=== PATIENT | female | born 1995 | race American Indian/Alaskan Native ===

== ENCOUNTER 2019-02-12 12:22 | Emergency (ER) | payer SELFPAY ==
[2019-02-12 13:03] VITALS: BP 157/79
--- NOTE | 2019-02-12 13:05 | Event Note ---
ED Screening Note Date of service: 02/12/19 Time: 13:01 ED Screening Note: This is a 23 y.o. F. that presents to the ER with pelvic pain for 2 days. Reports history of ovarian cyst on right. LMP on Depo - urinary frequency, urgency, dysuria, vaginal discharge/bleeding, back pain, or hematuria. This initial assessment/diagnostic orders/clinical plan/treatment(s) is/are subject to change based on patients health status, clinical progression and re- assessment by fellow clinical providers in the ED. Further treatment and workup at subsequent clinical providers discretion. Patient/guardian urged not to elope from the ED as their condition may be serious if not clinically assessed and ma naged. Initial orders include: Labs and Pelvic/transvaginal US
[2019-02-12 13:31] LABS: Bacteria,Urine 1+ /HPF (Negative); Bilirubin,Urine NEG (Negative); Blood,Urine SM (Negative); Color,Urine Yellow (Yellow); Mucus,Urine 3+ /HPF; Protein,Urine <15 mg/dL mg/dL (Negative); Urobilinogen,Urine < 2.0 mg/dL (<2.0)
[2019-02-12 13:36] LABS: Basophils % (Auto) 0.5 % (0.0-1.8); Eosinophils # (Auto) 0.1 K/mm3 (0.0-0.4); Eosinophils % (Auto) 2.9 % (0.0-4.3); Hematocrit 39.6 % (30.3-42.9); Lymphocytes # (Auto) 1.8 K/mm3 (1.2-5.4); Lymphocytes % (Auto) 36.1 % (13.4-35.0); Mean Corpuscular HGB Conc 33 % (30-34); Mean Corpuscular Volume 88 fl (79-97); Monocytes # (Auto) 0.4 K/mm3 (0.0-0.8); Monocytes % (Auto) 7.9 % (0.0-7.3); Platelet Count 223 K/mm3 (140-440); Red Blood Count 4.53 M/mm3 (3.65-5.03); Red Cell Distribution Width 13.8 % (13.2-15.2)
--- NOTE | 2019-02-12 13:50 | Emergency Department Report ---
ED Abdominal Pain HPI - General Chief Complaint: Abdominal Pain Stated Complaint: LOWER ABD PAIN Time Seen by Provider: 02/12/19 13:01 Source: patient Mode of arrival: Ambulatory Limitations: Language Barrier - History of Present Illness Initial Comments: 23-year-old female presents to ED with lower abdominal pain since yesterday. Patient reports she has been having ongoing lower abdominal pain for the last 8 months. States has been to various physicians over the course of the last 8 months. Reports previous ultrasounds showed ovarian cyst. LMP unknown. Patient states she was on Depo injections, but last shot was in August, missed the November dose. Patient reports she has been sexually active, not using condoms. Patient has not taken a test. Reported urinary frequency, denies dysuria. She reports vaginal discharge. MD Complaint: abdominal pain -: Last night Location: suprapubic Radiation: none Migration to: no migration Severity: mild Severity scale (0 -10): 6 Quality: cramping Consistency: constant Improves With: nothing Worsens With: nothing Associated Symptoms: denies: nausea, vomiting, fever, dysuria - Related Data Previous Rx's Medication Instructions Recorded Last Taken Type Naproxen [Naprosyn] 500 mg PO BID #20 tablet 02/12/19 Unknown Rx Phenazopyridine [Pyridium] 200 mg PO TID #6 tab 02/12/19 Unknown Rx Sulfamethoxazole/Trimethoprim 1 each PO BID #6 tablet 02/12/19 Unknown Rx [Bactrim DS TAB] Allergies Allergy/AdvReac Type Severity Reaction Status Date / Time No Known Allergies Allergy Verified 02/12/19 13:03 ED Review of Systems ROS: Stated complaint: LOWER ABD PAIN Other details as noted in HPI Comment: All other systems reviewed and negative Constitutional: denies: chills, fever Gastrointestinal: abdominal pain. denies: nausea, vomiting Genitourinary: frequency, discharge, abnormal menses. denies: dysuria ED Past Medical Hx - Past Medical History Additional medical history: OVARIAN CYST - Surgical History Additional Surgical History: BREAST AUMENTATION. - Social History Smoking Status: Never Smoker Substance Use Type: None - Medications Home Medications: Home Medications Medication Instructions Recorded Confirmed Last Taken Type Naproxen [Naprosyn] 500 mg PO BID #20 tablet 02/12/19 Unknown Rx Phenazopyridine [Pyridium] 200 mg PO TID #6 tab 02/12/19 Unknown Rx Sulfamethoxazole/Trimethoprim 1 each PO BID #6 tablet 02/12/19 Unknown Rx [Bactrim DS TAB] ED Physical Exam - General Limitations: Language Barrier General appearance: alert, in no apparent distress - Head Head exam: Present: atraumatic, normocephalic - Eye Eye exam: Present: normal appearance, PERRL, EOMI - ENT ENT exam: Present: mucous membranes moist - Neck Neck exam: Present: normal inspection - Respiratory Respiratory exam: Present: normal lung sounds bilaterally. Absent: respiratory distress - Cardiovascular Cardiovascular Exam: Present: regular rate, normal rhythm - GI/Abdominal GI/Abdominal exam: Present: soft, tenderness (mild suprapubic tenderness). Absent: distended - External exam: Present: normal external exam Speculum exam: Present: vaginal discharge (white, thick) Bi-manual exam: Present: normal bi-manual exam. Absent: cervical motion tendernes, adnexal tenderness - Extremities Exam Extremities exam: Present: normal inspection - Neurological Exam Neurological exam: Present: alert, oriented X3 - Psychiatric Psychiatric exam: Present: normal affect, normal mood - Skin Skin exam: Present: warm, dry, intact, normal color ED Course Vital Signs 02/12/19 13:01 Temperature 99 F Pulse Rate 92 H Respiratory 18 Rate Blood Pressure 157/79 [Right] O2 Sat by Pulse 98 Oximetry ED Medical Decision Making - Lab Data Result diagrams: 02/12/19 13:10 02/12/19 13:10 - Differential Diagnosis , UTI, PID Critical care attestation.: If time is entered above; I have spent that time in minutes in the direct care of this critically ill patient, excluding procedure time. ED Disposition Clinical Impression: UTI (urinary tract infection) Disposition: DC-01 TO HOME OR SELFCARE Is pt being admited?: No Condition: Stable Instructions: Urinary Tract Infection in Women (ED) Prescriptions: Sulfamethoxazole/Trimethoprim [Bactrim DS TAB] 1 each PO BID #6 tablet Naproxen [Naprosyn] 500 mg PO BID #20 tablet Phenazopyridine [Pyridium] 200 mg PO TID #6 tab Referrals: AMERICA TEMPLETON MD [Primary Care Provider] - 3-5 Days TARSHA PUGA MD [Staff Physician] - 3-5 Days Time of Disposition: 14:29
[2019-02-12 13:56] LABS: Alanine Aminotransferase 12 units/L (7-56); Albumin 4.2 g/dL (3.9-5); BUN/Creatinine Ratio 13; Blood Urea Nitrogen 8 mg/dL (7-17); Calcium 8.9 mg/dL (8.4-10.2); Hemolysis Index 6
[2019-02-12] MEDS ORDERED: AZITHROMYCIN 250 MG TAB PO ONE (14:24)
[2019-02-12] MEDS ORDERED: LIDOCAINE-MPF (1%) 10 MG/1 ML VIAL 5 ML INFILTRATI ONE (14:24)
== END 2019-02-12 14:56 | disposition home or self-care (01) ==
LOC: ED 12:22
DX: N39.0 Urinary tract infection, site not specified (principal); Z98.890 Other specified postprocedural states
CPT/HCPCS: 36415; 80053; 81001; 84703; 85025; 87210; 87591; 96372; 99284; J0696

== ENCOUNTER 2019-11-06 20:47 | Emergency (ER) | payer SELFPAY ==
[2019-11-06 20:51] VITALS: BP 114/80
--- NOTE | 2019-11-06 20:52 | Event Note ---
ED Screening Note ED Screening Note: lower abd pain that began a week ago states she is having vaginal discharge no fever no v/d no dysuria PMHx none no allergies to meds LNMP: a week and a half ago she states she does not have a PCP or CARE MANAGER CNA This initial assessment/diagnostic orders/clinical plan/treatment(s) is/are subject to change based on patients health status, clinical progression and re- assessment by fellow clinical providers in the ED. Further treatment and workup at subsequent clinical providers discretion. Patient/guardian urged not to elope from the ED as their condition may be serious if not clinically assessed and managed. Initial orders include: ua, urine preg
[2019-11-06 21:15] LABS: Bacteria,Urine 1+ /HPF (Negative); Bilirubin,Urine NEG (Negative); Blood,Urine NEG (Negative); Color,Urine Yellow (Yellow); Mucus,Urine 1+ /HPF; Protein,Urine <15 mg/dL mg/dL (Negative); Urobilinogen,Urine < 2.0 mg/dL (<2.0)
[2019-11-06 21:18] LABS: HCG Qualitative,Urine Negative (Negative)
--- NOTE | 2019-11-06 21:59 | Emergency Department Report ---
ED Female HPI - General Chief complaint: Abdominal Pain Stated complaint: ABDOMINAL PAIN/ABNORMAL DISCHARGE Time Seen by Provider: 11/06/19 20:51 Source: patient Mode of arrival: Ambulatory Limitations: No Limitations - History of Present Illness Initial comments: 23-year-old F [place] female resents emerged department complaining of lower abdominal pain off and on for 2 weeks associated with occasional cramping and some dysuria. She reports no suspicion of an STD. Ports no vaginal bleeding, no fever chills or sweats no chest pain or palpitations no nausea or vomiting. MD Complaint: dysuria Location: suprapubic Radiation: non-radiating Severity: mild Consistency: constant Improves with: none Associated Symptoms: dysuria. denies: vaginal bleeding, abdominal pain, loss of appetite, shortness of breath, syncope, weakness - Related Data Previous Rx's Medication Instructions Recorded Last Taken Type Naproxen [Naprosyn] 500 mg PO BID #20 tablet 02/12/19 Unknown Rx Sulfamethoxazole/Trimethoprim 1 each PO BID #6 tablet 02/12/19 Unknown Rx [Bactrim DS TAB] Nitrofurantoin [place]/M-Cryst 100 mg PO Q12HR #20 capsule 11/06/19 Unknown Rx [Macrobid CAP] Phenazopyridine [Pyridium] 200 mg PO TID #6 tab 11/06/19 Unknown Rx Allergies Allergy/AdvReac Type Severity Reaction Status Date / Time No Known Allergies Allergy Verified 02/12/19 13:03 ED Review of Systems ROS: Stated complaint: ABDOMINAL PAIN/ABNORMAL DISCHARGE Other details as noted in HPI Comment: All other systems reviewed and negative ED Past Medical Hx - Past Medical History Previous Medical History?: Yes Additional medical history: OVARIAN CYST - Surgical History Past Surgical History?: Yes Additional Surgical History: BREAST AUMENTATION. - Social History Smoking Status: Never Smoker Substance Use Type: None - Medications Home Medications: Home Medications Medication Instructions Recorded Confirmed Last Taken Type Naproxen [Naprosyn] 500 mg PO BID #20 tablet 02/12/19 Unknown Rx Sulfamethoxazole/Trimethoprim 1 each PO BID #6 tablet 02/12/19 Unknown Rx [Bactrim DS TAB] Nitrofurantoin [place]/M-Cryst 100 mg PO Q12HR #20 capsule 11/06/19 Unknown Rx [Macrobid CAP] Phenazopyridine [Pyridium] 200 mg PO TID #6 tab 11/06/19 Unknown Rx ED Physical Exam - General Limitations: No Limitations General appearance: alert, in no apparent distress - Head Head exam: Present: atraumatic, normocephalic - Eye Eye exam: Present: normal appearance, PERRL, EOMI - ENT ENT exam: Present: mucous membranes moist - Neck Neck exam: Present: normal inspection - Respiratory Respiratory exam: Present: normal lung sounds bilaterally. Absent: respiratory distress - Cardiovascular Cardiovascular Exam: Present: regular rate, normal rhythm. Absent: systolic murmur, diastolic murmur, rubs, gallop - GI/Abdominal GI/Abdominal exam: Present: soft, normal bowel sounds - Extremities Exam Extremities exam: Present: normal inspection - Back Exam Back exam: Present: normal inspection - Neurological Exam Neurological exam: Present: alert, oriented X3 - Psychiatric Psychiatric exam: Present: normal affect, normal mood - Skin Skin exam: Present: warm, dry, intact, normal color. Absent: rash ED Course Vital Signs 11/06/19 11/06/19 20:50 20:52 Temperature 98.6 F 98.6 F Pulse Rate 77 76 Respiratory 18 18 Rate Blood Pressure 114/80 114/80 O2 Sat by Pulse 98 98 Oximetry ED Medical Decision Making - Medical Decision Making This patient presents with abdominal pain of unclear etiology. Their evaluation has not identified a emergent etiology for the abdominal pain. Specifically, given the very benign exam, normal laboratory studies, and lack of significant risk factors, I have a very low suspicion for appendicitis, ischemic bowel, bowel perforation, or any other life threatening disease. I have discussed with the patient the level of uncertainty with undifferentiated abdominal pain and clearly explained the need to follow-up as noted on the discharge instructions, or return to the Emergency Department immediately if the pain worsens, develops fever, persistent and uncontrollable vomiting, or for any new symptoms or concerns. I discussed with the patient that this presentation today for abdominal pain could represent a significant risk for an acute abdominal process. Although the tests in the ED were essentially normal, there is still a possibility of a process such as appendicitis, diverticulitis, cholecystitis, ulcer, early bowel obstruction, mesenteric ischemia, kidney stone, or even kidney infection which could subsequently cause disability or . The patient understands that they must return within 24 hours for a recheck or see their physician within 24 hours for re-exam due to the possibility of significant surgical or medical process. Critical care attestation.: If time is entered above; I have spent that time in minutes in the direct care of this critically ill patient, excluding procedure time. ED Disposition Clinical Impression: UTI (urinary tract infection) Disposition: TO HOME OR SELFCARE Is pt being admited?: No Does the pt Need Aspirin: No Condition: Stable Instructions: Abdominal Pain (ED), Dysuria (ED), Urinary Tract Infection in Women (ED) Prescriptions: Nitrofurantoin [place]/M-Cryst [Macrobid CAP] 100 mg PO Q12HR #20 capsule Phenazopyridine [Pyridium] 200 mg PO TID #6 tab Referrals: PRIMARY CARE, [Primary Care Provider] - 3-5 Days [facility] [Provider Group] - 3-5 Days
== END 2019-11-06 22:53 | disposition home or self-care (01) ==
LOC: ED 20:47
DX: N39.0 Urinary tract infection, site not specified (principal); N83.209 Unspecified ovarian cyst, unspecified side; Z98.890 Other specified postprocedural states; Z79.899 Other long term (current) drug therapy
CPT/HCPCS: 81001; 81025

== ENCOUNTER 2020-04-30 19:06 | Emergency (ER) | payer SELFPAY ==
[2020-04-30 21:42] VITALS: BP 118/66
[2020-04-30 21:58] LABS: Hemoglobin 12.6 gm/dl (10.1-14.3); Mean Corpuscular HGB Conc 33 % (30-34); Mean Corpuscular Volume 88 fl (79-97); Platelet Count 228 K/mm3 (140-440); Red Blood Count 4.29 M/mm3 (3.65-5.03); Red Cell Distribution Width 13.9 % (13.2-15.2)
[2020-04-30 22:20] LABS: Blood Urea Nitrogen 8 mg/dL (7-17); Calcium 9.8 mg/dL (8.4-10.2); Hemolysis Index 15
[2020-04-30 22:24] LABS: Bilirubin,Urine NEG (Negative); Blood,Urine NEG (Negative); Color,Urine Yellow (Yellow); Mucus,Urine 2+ /HPF; Protein,Urine <15 mg/dL mg/dL (Negative); WBC,Urine < 1.0 /HPF (0.0-6.0)
[2020-04-30 22:30] LABS: BUN/Creatinine Ratio 13
[2020-04-30 23:03] LABS: Alanine Aminotransferase 9 units/L (7-56); Albumin 4.3 g/dL (3.9-5)
[2020-04-30 23:04] LABS: Bilirubin,Direct < 0.2 mg/dL (0-0.2)
[2020-04-30] MEDS ORDERED: LIDOCAINE-MPF (1%) 10 MG/1 ML VIAL 5 ML INFILTRATI ONE (23:58)
[2020-04-30] MEDS ORDERED: AZITHROMYCIN 250 MG TAB PO ONE (23:58)
[2020-04-30] MEDS ORDERED: ACETAMINOPHEN 500 MG TAB PO ONE (23:58)
[2020-04-30] MEDS ORDERED: ONDANSETRON 4 MG ODT TAB PO ONE (23:59)
--- NOTE | 2020-05-01 00:09 | Ultrasound Report ---
EXAMINATION: Complete pelvic ultrasound, 04/30/2020 CLINICAL INFORMATION: Pelvic pain and dysfunctional uterine bleeding COMPARISON: None. FINDINGS: The uterus is normal in size measuring 8.0 x 3.7 x 5.3 cm. The endometrial thickness measures a maxim um of 11 mm. The bilateral adnexal regions appear within normal limits. Doppler flow is demonstrated to both adnex al regions. There is a small amount of free pelvic fluid. IMPRESSION: 1. No sonographic evidence of acute intrapelvic abnormality. Signer Name: Tarah Mccracken MD Signed: 05/01/2020 12:04 AM Workstation Name: [id number]
--- NOTE | 2020-05-01 00:47 | Emergency Department Report ---
ED Abdominal Pain HPI - General Chief Complaint: Abdominal Pain Stated Complaint: ABDOMINAL PAIN Source: patient Mode of arrival: Ambulatory Limitations: No Limitations - History of Present Illness Initial Comments: Patient is a A2 24-year-old -[place] female with history of chronic pelvic pain who presents to the ED with complaint of acute exacerbation of her chronic pelvic pain for the last 3 weeks. Patient states that she is 3 weeks s/p through D&C and that the pain has not stopped since the procedure 3 weeks ago. Patient states that she has also been having persistent vaginal discharge which she describes as yellowish with malodorous smell. Patient denies dizziness, syncope, dysuria, urinary frequency and urgency, nausea, vomiting, diarrhea, low back pain, chest pain or shortness of breath and sore throat or headache. MD Complaint: abdominal pain (Diffuse lower abdomen), other (Vaginal discharge) -: Sudden, week(s) (3) Location: suprapubic Radiation: none Migration to: no migration Severity scale (0 -10): 7 Quality: cramping, aching, sharp Consistency: constant Improves With: nothing Worsens With: nothing Associated Symptoms: denies other symptoms. denies: nausea, vomiting, diarrhea, fever, chills, constipation, dysuria, hematemesis, melena, hematuria, anorexia, syncope - Related Data Previous Rx's Medication Instructions Recorded Last Taken Type Naproxen [Naprosyn] 500 mg PO BID #20 tablet 02/12/19 Unknown Rx Sulfamethoxazole/Trimethoprim 1 each PO BID #6 tablet 02/12/19 Unknown Rx [Bactrim DS TAB] Nitrofurantoin [place]/M-Cryst 100 mg PO Q12HR #20 capsule 11/06/19 Unknown Rx [Macrobid CAP] Phenazopyridine [Pyridium] 200 mg PO TID #6 tab 11/06/19 Unknown Rx Doxycycline Hyclate 100 mg PO Q12H #20 tablet. 05/01/20 Unknown Rx Fluconazole (Nf) [Diflucan TAB] 150 mg PO ONCE #1 tablet 05/01/20 Unknown Rx Naproxen 500 mg PO Q12H PRN #30 tablet 05/01/20 Unknown Rx Ondansetron [Zofran Odt] 4 mg PO Q6HR PRN #15 tab.ghulam 05/01/20 Unknown Rx metroNIDAZOLE [Flagyl] 500 mg PO Q12HR #14 tab 05/01/20 Unknown Rx traMADoL [Ultram] 50 mg PO Q6HR PRN #10 tablet 05/01/20 Unknown Rx Allergies Allergy/AdvReac Type Severity Reaction Status Date / Time No Known Allergies Allergy Verified 02/12/19 13:03 ED Review of Systems ROS: Stated complaint: ABDOMINAL PAIN Other details as noted in HPI Constitutional: denies: chills, fever Eyes: denies: eye pain, eye discharge, vision change ENT: denies: ear pain, throat pain Respiratory: denies: cough, shortness of breath, wheezing Cardiovascular: denies: chest pain, palpitations Endocrine: no symptoms reported Gastrointestinal: abdominal pain (suprapubic). denies: nausea, vomiting, diarrhea Genitourinary: discharge. denies: urgency, dysuria Musculoskeletal: denies: back pain, joint swelling, arthralgia Skin: denies: rash, lesions Neurological: denies: headache, weakness, paresthesias Psychiatric: denies: anxiety, depression Hematological/Lymphatic: denies: easy bleeding, easy bruising ED Past Medical Hx - Past Medical History Previous Medical History?: No Additional medical history: OVARIAN CYST - Surgical History Additional Surgical History: BREAST AUMENTATION. - Social History Smoking Status: Never Smoker Substance Use Type: None - Medications Home Medications: Home Medications Medication Instructions Recorded Confirmed Last Taken Type Naproxen [Naprosyn] 500 mg PO BID #20 tablet 02/12/19 Unknown Rx Sulfamethoxazole/Trimethoprim 1 each PO BID #6 tablet 02/12/19 Unknown Rx [Bactrim DS TAB] Nitrofurantoin [place]/M-Cryst 100 mg PO Q12HR #20 capsule 11/06/19 Unknown Rx [Macrobid CAP] Phenazopyridine [Pyridium] 200 mg PO TID #6 tab 11/06/19 Unknown Rx Doxycycline Hyclate 100 mg PO Q12H #20 tablet. 05/01/20 Unknown Rx Fluconazole (Nf) [Diflucan TAB] 150 mg PO ONCE #1 tablet 05/01/20 Unknown Rx Naproxen 500 mg PO Q12H PRN #30 tablet 05/01/20 Unknown Rx Ondansetron [Zofran Odt] 4 mg PO Q6HR PRN #15 tab.rapdis 05/01/20 Unknown Rx metroNIDAZOLE [Flagyl] 500 mg PO Q12HR #14 tab 05/01/20 Unknown Rx traMADoL [Ultram] 50 mg PO Q6HR PRN #10 tablet 05/01/20 Unknown Rx ED Physical Exam - General Limitations: No Limitations General appearance: alert, in no apparent distress - Head Head exam: Present: atraumatic, normocephalic, normal inspection - Eye Eye exam: Present: normal appearance, PERRL, EOMI Pupils: Present: normal accommodation - ENT ENT exam: Present: normal exam, normal orophraynx, mucous membranes moist, TM's normal bilaterally, normal external ear exam - Neck Neck exam: Present: normal inspection, full ROM - Respiratory Respiratory exam: Present: normal lung sounds bilaterally. Absent: respiratory distress, wheezes, rales, rhonchi, chest wall tenderness, accessory muscle use, decreased breath sounds, prolonged expiratory - Cardiovascular Cardiovascular Exam: Present: regular rate, normal rhythm, normal heart sounds. Absent: systolic murmur, diastolic murmur, rubs, gallop - GI/Abdominal GI/Abdominal exam: Present: soft, tenderness (Diffuse lower abdominal tenderness to palpitations), normal bowel sounds. 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 Absent: tenderness, CVA tenderness (R), CVA tenderness (L), muscle spasm, paraspinal tenderness, vertebral tenderness - Neurological Exam Neurological exam: Present: alert, oriented X3, CN II-XII intact, normal gait, reflexes normal - Psychiatric Psychiatric exam: Present: normal affect, normal mood - Skin Skin exam: Present: warm, dry, intact, normal color. Absent: rash ED Course Vital Signs 04/30/20 21:40 Temperature 98.1 F Pulse Rate 69 Respiratory 16 Rate Blood Pressure 118/66 O2 Sat by Pulse 99 Oximetry ED Medical Decision Making - Lab Data Result diagrams: 04/30/20 21:46 04/30/20 21:46 - Radiology Data Radiology results: report reviewed, image reviewed Findings [facility] [address] [place] [address] Ultrasound Report Signed Patient: LINDA MASTERSON MR#: [id number] : 1995 Acct:[id number] Age/Sex: 24 / F ADM Date: 04/30/20 Loc: ED Attending Dr: Ordering Physician: DELBERT BAKER Date of Service: 04/30/20 Procedure(s): US pelvis duplex doppler comp Accession Number(s): [id number] cc: DELBERT BAKER EXAMINATION: Complete pelvic ultrasound, 04/30/2020 CLINICAL INFORMATION: Pelvic pain and dysfunctional uterine bleeding COMPARISON: None. FINDINGS: The uterus is normal in size measuring 8.0 x 3.7 x 5.3 cm. The endometrial thickness measures a maximum of 11 mm. The bilateral adnexal regions appear within normal limits. Doppler flow is demonstrated to both adnexal regions. There is a small amount of free pelvic fluid. IMPRESSION: 1. No sonographic evidence of acute intrapelvic abnormality. Signer Name: Tarah Mccracken MD Signed: 05/01/2020 12:04 AM Workstation Name: [id number] Transcribed By: EB Dictated By: Tarah Mccracken MD Electronically Authenticated By: Tarah Mccracken MD Signed Date/Time: 05/01/20 0004 DD/ 0002 TD/TT: - Medical Decision Making This is a A2 24-year-old -[place]ian female with history of chronic pelvic pain who presents to the ED with complaint of acute exacerbation of her chronic pelvic pain for the last 3 weeks. Patient states that she is 3 weeks s/p through D&C and that the pain has not stopped since the procedure 3 weeks ago. Patient states that she has also been having persistent vaginal discharge which she describes as yellowish with malodorous smell. In the ED, patient is alert and oriented x3 and is not in distress. Patient was treated for pain in the ED and lab test results were reviewed and are all nonactionable except for wet prep test which was positive Gardnerella vaginalis. Pelvic exam was positive for cervical motion tenderness and uterine tenderness with yellowish vaginal discharge. Patient was empirically treated in the ED with antibiotics for PID and on reevaluation, patient's pain is well controlled with medications. Pelvic ultrasound showed no acute abnormalities. Patient was therefore discharged home on medications including antibiotics and pain medications and was advised to follow-up with [facility]OM[facility] physician in 5 to 7 days for reevaluation or return to the ED immediately if symptoms get worse. - Differential Diagnosis ; PID; Ovarian cyst; STD; UTI; Bacterial vaginosis; Critical care attestation.: If time is entered above; I have spent that time in minutes in the direct care of this critically ill patient, excluding procedure time. ED Disposition Clinical Impression: Acute suprapubic pain, Nausea and vomiting in adult, Acute pelvic inflammatory disease (PID), Bacterial vaginosis Disposition: TO HOME OR SELFCARE Is pt being admited?: No Does the pt Need Aspirin: No Condition: Stable Instructions: Nausea and Vomiting, Adult, [id number], Abdominal Pain, Adult, [id number], Pelvic Inflammatory Disease, [id number], Abdominal Pain (ED), Bacterial Vaginosis (ED), Bacterial Vaginosis, [id number] Additional Instructions: All lab test results were reviewed and are all nonactionable. The pelvic ultrasound showed no acute abnormalities. Therefore take medications with food, drink plenty of fluids and follow-up with your primary care physician or [facility] physician in 7 to 10 days for reevaluation or return to the ED immediately if symptoms get worse. Prescriptions: Fluconazole (Nf) [Diflucan TAB] 150 mg PO ONCE #1 tablet Doxycycline Hyclate 100 mg PO Q12H #20 tablet. metroNIDAZOLE [Flagyl] 500 mg PO Q12HR #14 tab Naproxen 500 mg PO Q12H PRN #30 tablet PRN Reason: Pain , Severe (7-10) traMADoL [Ultram] 50 mg PO Q6HR PRN #10 tablet PRN Reason: Pain Ondansetron [Zofran Odt] 4 mg PO Q6HR PRN #15 tab.rapdis PRN Reason: Nausea Referrals: [facility] [Provider Group] - 3-5 Days Forms: STI Treatment and Prevention Time of Disposition: 00:49 Print Language: [place]
== END 2020-05-01 01:20 | disposition home or self-care (01) ==
LOC: ED 19:06
DX: N73.8 Other specified female pelvic inflammatory diseases (principal); Z76.0 Encounter for issue of repeat prescription; B96.89 Other specified bacterial agents as the cause of diseases classified elsewhere; Z79.899 Other long term (current) drug therapy; Z98.890 Other specified postprocedural states
CPT/HCPCS: 36415; 80048; 80076; 81001; 83690; 85027; 87210; 87591; 93975; 96372; 99284; J0696; Q0162

== ENCOUNTER 2021-03-04 13:20 | Emergency (ER) | payer SELFPAY ==
[2021-03-04] MEDS ORDERED: LIDOCAINE-MPF (1%) 10 MG/1 ML VIAL 5 ML INFILTRATI ONE (14:05)
--- NOTE | 2021-03-04 14:23 | Emergency Department Report ---
ED Female HPI - General Chief complaint: Urogenital-Female Stated complaint: ABD PAIN/ABNORMAL DISCHARGE Time Seen by Provider: 03/04/21 13:53 Source: patient Mode of arrival: Ambulatory Limitations: No Limitations - History of Present Illness Initial comments: Patient is a 25-year-old female presents emergency room with complaints of vaginal discharge that began a week ago. She states it is white in coloration. She states that she also has some mild suprapubic discomfort. She denies any fever, nausea, vomiting, diarrhea, dysuria, urinary symptoms, vaginal bleeding, vaginal itching, vaginal burning, vaginal lesions. She states that she is sexually active without protection and is concerned for STDs. No past medical history. No allergies to medications. Last menstrual cycle end of January. - Related Data Previous Rx's Medication Instructions Recorded Last Taken Type Naproxen [Naprosyn] 500 mg PO BID #20 tablet 02/12/19 Unknown Rx Sulfamethoxazole/Trimethoprim 1 each PO BID #6 tablet 02/12/19 Unknown Rx [Bactrim DS TAB] Nitrofurantoin [place]/M-Cryst 100 mg PO Q12HR #20 capsule 11/06/19 Unknown Rx [Macrobid CAP] Phenazopyridine [Pyridium] 200 mg PO TID #6 tab 11/06/19 Unknown Rx Doxycycline Hyclate 100 mg PO Q12H #20 tablet. 05/01/20 Unknown Rx Fluconazole (Nf) [Diflucan TAB] 150 mg PO ONCE #1 tablet 05/01/20 Unknown Rx Naproxen 500 mg PO Q12H PRN #30 tablet 05/01/20 Unknown Rx Ondansetron [Zofran Odt] 4 mg PO Q6HR PRN #15 tab.rapdis 05/01/20 Unknown Rx metroNIDAZOLE [Flagyl] 500 mg PO Q12HR #14 tab 05/01/20 Unknown Rx traMADoL [Ultram] 50 mg PO Q6HR PRN #10 tablet 05/01/20 Unknown Rx Doxycycline Hyclate [Doxycycline 100 mg PO BID 7 Days #14 tab 03/04/21 Unknown Rx Hyclate TAB] metroNIDAZOLE [Flagyl] 500 mg PO BID 7 Days #14 tab 03/04/21 Unknown Rx Allergies Allergy/AdvReac Type Severity Reaction Status Date / Time No Known Allergies Allergy Verified 02/12/19 13:03 ED Review of Systems ROS: Stated complaint: ABD PAIN/ABNORMAL DISCHARGE Other details as noted in HPI Comment: All other systems reviewed and negative ED Past Medical Hx - Past Medical History Previous Medical History?: Yes Additional medical history: OVARIAN CYST - Surgical History Past Surgical History?: Yes Additional Surgical History: BREAST AUMENTATION. - Social History Smoking Status: Never Smoker Substance Use Type: None - Medications Home Medications: Home Medications Medication Instructions Recorded Confirmed Last Taken Type Naproxen [Naprosyn] 500 mg PO BID #20 tablet 02/12/19 Unknown Rx Sulfamethoxazole/Trimethoprim 1 each PO BID #6 tablet 02/12/19 Unknown Rx [Bactrim DS TAB] Nitrofurantoin [place]/M-Cryst 100 mg PO Q12HR #20 capsule 11/06/19 Unknown Rx [Macrobid CAP] Phenazopyridine [Pyridium] 200 mg PO TID #6 tab 11/06/19 Unknown Rx Doxycycline Hyclate 100 mg PO Q12H #20 tablet.dr 05/01/20 Unknown Rx Fluconazole (Nf) [Diflucan TAB] 150 mg PO ONCE #1 tablet 05/01/20 Unknown Rx Naproxen 500 mg PO Q12H PRN #30 tablet 05/01/20 Unknown Rx Ondansetron [Zofran Odt] 4 mg PO Q6HR PRN #15 tab.rapdis 05/01/20 Unknown Rx metroNIDAZOLE [Flagyl] 500 mg PO Q12HR #14 tab 05/01/20 Unknown Rx traMADoL [Ultram] 50 mg PO Q6HR PRN #10 tablet 05/01/20 Unknown Rx Doxycycline Hyclate [Doxycycline 100 mg PO BID 7 Days #14 tab 03/04/21 Unknown Rx Hyclate TAB] metroNIDAZOLE [Flagyl] 500 mg PO BID 7 Days #14 tab 03/04/21 Unknown Rx ED Physical Exam - General Limitations: No Limitations General appearance: alert, in no apparent distress - Head Head exam: Present: atraumatic, normocephalic - Eye Eye exam: Present: normal appearance - ENT ENT exam: Present: mucous membranes moist - Respiratory Respiratory exam: Present: normal lung sounds bilaterally. Absent: respiratory distress, wheezes, rales, rhonchi, stridor, chest wall tenderness, accessory muscle use, decreased breath sounds, prolonged expiratory - Cardiovascular Cardiovascular Exam: Present: regular rate, normal rhythm, normal heart sounds. Absent: systolic murmur, diastolic murmur, rubs, gallop - GI/Abdominal GI/Abdominal exam: Present: soft, normal bowel sounds. Absent: distended, tenderness, guarding, rebound, rigid - Neurological Exam Neurological exam: Present: alert, oriented X3 - Psychiatric Psychiatric exam: Present: normal affect, normal mood - Skin Skin exam: Present: warm, dry, intact ED Course Vital Signs 03/04/21 03/04/21 13:47 14:24 Temperature 98.2 F 97.9 F Pulse Rate 84 69 Respiratory 16 17 Rate Blood Pressure 127/83 Blood Pressure 123/66 [Left] O2 Sat by Pulse 100 98 Oximetry ED Medical Decision Making - Medical Decision Making Patient is a 25-year-old female presents emergency room with complaints of vaginal discharge that began a week ago. She states it is white in coloration. She states that she also has some mild suprapubic discomfort. She denies any fever, nausea, vomiting, diarrhea, dysuria, urinary symptoms, vaginal bleeding, vaginal itching, vaginal burning, vaginal lesions. She states that she is sexually active without protection and is concerned for STDs. No past medical history. No allergies to medications. Last menstrual cycle end of January. Vitals are normal. No abdominal tenderness on exam. UA is within normal limits. Urine is negative. Patient given ceftriaxone IM while in the emergency department. Patient given prescription for doxycycline and Flagyl. Advised patient Please take medication as prescribed. Please follow-up with the clinic or health department or to have a full STD panel. Please have any partner tested and treated as well. Avoid sexual intercourse. Return to emergency room for any new or worsening symptoms. Critical care attestation.: If time is entered above; I have spent that time in minutes in the direct care of this critically ill patient, excluding procedure time. ED Disposition Clinical Impression: Vaginal discharge, Abdominal discomfort Disposition: 01 HOME / SELF CARE / HOMELESS Is pt being admited?: No Does the pt Need Aspirin: No Condition: Stable Instructions: Vaginitis, [id number], Safe Sex Additional Instructions: Please take medication as prescribed. Please follow-up with the clinic or health department or to have a full STD panel. Please have any partner tested and treated as well. Avoid sexual intercourse. Return to emergency room for any new or worsening symptoms. Prescriptions: Doxycycline Hyclate [Doxycycline Hyclate TAB] 100 mg PO BID 7 Days #14 tab metroNIDAZOLE [Flagyl] 500 mg PO BID 7 Days #14 tab Referrals: PRIMARY CAREMD [Primary Care Provider] - 3-5 Days [facility] [Provider Group] - 3-5 Days RUBA LIVINGSTON MD [Staff Physician] - 3-5 Days [facility] [Outside] - 3-5 Days Time of Disposition: 16:28 Print Language: BELARUSIAN
[2021-03-04 14:28] VITALS: BP 127/83
[2021-03-04 15:59] LABS: Bilirubin,Urine NEG (Negative); Blood,Urine NEG (Negative); Color,Urine Yellow (Yellow); Mucus,Urine FEW /HPF; Protein,Urine <15 mg/dL mg/dL (Negative); Urobilinogen,Urine < 2.0 mg/dL (<2.0); WBC,Urine < 1.0 /HPF (0.0-6.0)
[2021-03-04 16:24] LABS: HCG Qualitative,Urine Negative (Negative)
== END 2021-03-04 16:39 | disposition home or self-care (01) ==
LOC: ED 13:20
DX: N89.8 Other specified noninflammatory disorders of vagina (principal); R10.30 Lower abdominal pain, unspecified; Z98.890 Other specified postprocedural states; Z79.899 Other long term (current) drug therapy
CPT/HCPCS: 81001; 81025; 96372; 99283; J0696

== ENCOUNTER 2021-06-25 15:53 | Emergency (ER) | payer SELFPAY ==
--- NOTE | 2021-06-25 17:17 | Emergency Department Report ---
ED Female HPI - General Chief complaint: Urogenital-Female Stated complaint: ABDOMINAL PAIN/VAG DISCHARGE Time Seen by Provider: 06/25/21 17:12 Source: patient Mode of arrival: Ambulatory Limitations: No Limitations - History of Present Illness Initial comments: 25 yof with no pmh present to ed for evaluation of vaginal discharge. She states that she has had the discharge for the past 2.5 weeks, and it has not gotten any better or worse. She states that she used some otc treatment for BV without improvement. She states that discharge is mostly white, thin and malodorous. She states that she is not concerned about STI because she was recently tested for them and was recently treated for a UTI. She denies fever and dysuria but states that she did have some brief abdominal pain yesterday that has since resolved. MD Complaint: vaginal discharge -: Gradual, week(s) (2.5) - Related Data Previous Rx's Medication Instructions Recorded Last Taken Type Naproxen [Naprosyn] 500 mg PO BID #20 tablet 02/12/19 Unknown Rx Sulfamethoxazole/Trimethoprim 1 each PO BID #6 tablet 02/12/19 Unknown Rx [Bactrim DS TAB] Nitrofurantoin [place]/M-Cryst 100 mg PO Q12HR #20 capsule 11/06/19 Unknown Rx [Macrobid CAP] Phenazopyridine [Pyridium] 200 mg PO TID #6 tab 11/06/19 Unknown Rx Doxycycline Hyclate 100 mg PO Q12H #20 tablet. 05/01/20 Unknown Rx Fluconazole (Nf) [Diflucan TAB] 150 mg PO ONCE #1 tablet 05/01/20 Unknown Rx Naproxen 500 mg PO Q12H PRN #30 tablet 05/01/20 Unknown Rx Ondansetron [Zofran Odt] 4 mg PO Q6HR PRN #15 tab.rapdis 05/01/20 Unknown Rx metroNIDAZOLE [Flagyl] 500 mg PO Q12HR #14 tab 05/01/20 Unknown Rx traMADoL [Ultram] 50 mg PO Q6HR PRN #10 tablet 05/01/20 Unknown Rx Doxycycline Hyclate [Doxycycline 100 mg PO BID 7 Days #14 tab 03/04/21 Unknown Rx Hyclate TAB] metroNIDAZOLE [Flagyl] 500 mg PO BID 7 Days #14 tab 03/04/21 Unknown Rx metroNIDAZOLE [Flagyl] 500 mg PO Q12HR 7 Days #14 tab 06/25/21 Unknown Rx Allergies Allergy/AdvReac Type Severity Reaction Status Date / Time No Known Allergies Allergy Verified 02/12/19 13:03 ED Review of Systems ROS: Stated complaint: ABDOMINAL PAIN/VAG DISCHARGE Other details as noted in HPI Comment: All other systems reviewed and negative Constitutional: no symptoms reported Respiratory: no symptoms reported Endocrine: no symptoms reported ED Past Medical Hx - Past Medical History Previous Medical History?: No Additional medical history: OVARIAN CYST - Surgical History Past Surgical History?: Yes Additional Surgical History: BREAST AUMENTATION. - Social History Smoking Status: Never Smoker Substance Use Type: None - Medications Home Medications: Home Medications Medication Instructions Recorded Confirmed Last Taken Type Naproxen [Naprosyn] 500 mg PO BID #20 tablet 02/12/19 Unknown Rx Sulfamethoxazole/Trimethoprim 1 each PO BID #6 tablet 02/12/19 Unknown Rx [Bactrim DS TAB] Nitrofurantoin [place]/M-Cryst 100 mg PO Q12HR #20 capsule 11/06/19 Unknown Rx [Macrobid CAP] Phenazopyridine [Pyridium] 200 mg PO TID #6 tab 11/06/19 Unknown Rx Doxycycline Hyclate 100 mg PO Q12H #20 tablet. 05/01/20 Unknown Rx Fluconazole (Nf) [Diflucan TAB] 150 mg PO ONCE #1 tablet 05/01/20 Unknown Rx Naproxen 500 mg PO Q12H PRN #30 tablet 05/01/20 Unknown Rx Ondansetron [Zofran Odt] 4 mg PO Q6HR PRN #15 tab.rapdis 05/01/20 Unknown Rx metroNIDAZOLE [Flagyl] 500 mg PO Q12HR #14 tab 05/01/20 Unknown Rx traMADoL [Ultram] 50 mg PO Q6HR PRN #10 tablet 05/01/20 Unknown Rx Doxycycline Hyclate [Doxycycline 100 mg PO BID 7 Days #14 tab 03/04/21 Unknown Rx Hyclate TAB] metroNIDAZOLE [Flagyl] 500 mg PO BID 7 Days #14 tab 03/04/21 Unknown Rx metroNIDAZOLE [Flagyl] 500 mg PO Q12HR 7 Days #14 tab 06/25/21 Unknown Rx ED Physical Exam - General General appearance: alert, in no apparent distress - Head Head exam: Present: atraumatic, normocephalic - Eye Eye exam: Present: normal appearance - Neck Neck exam: Present: normal inspection, full ROM - Respiratory Respiratory exam: Present: normal lung sounds bilaterally. Absent: respiratory distress - Cardiovascular Cardiovascular Exam: Present: regular rate - GI/Abdominal GI/Abdominal exam: Present: soft, normal bowel sounds. Absent: distended, tenderness, guarding - Neurological Exam Neurological exam: Present: alert, oriented X3, normal gait - Psychiatric Psychiatric exam: Present: normal mood - Skin Skin exam: Present: warm, dry, intact, normal color ED Course Vital Signs 06/25/21 17:25 Temperature 98.2 F Pulse Rate 92 H Respiratory 16 Rate Blood Pressure 107/74 [Right] ED Medical Decision Making - Medical Decision Making 25 yof with no pmh present to ed for evaluation of vaginal discharge. She states that she has had the discharge for the past 2.5 weeks, and it has not gotten any better or worse. She states that she used some otc treatment for BV without improvement. She states that discharge is mostly white, thin and malodorous. She states that she is not concerned about STI because she was recently tested for them and was recently treated for a UTI. She denies fever and dysuria but states that she did have some brief abdominal pain yesterday that has since resolved. Patient has history of BV and symptoms described were consistent with BV. She will be treated with 7 day coarse of Flagyl and encouraged to follow up with leather piece inspector of local health department if no improvement or worsening symptoms. Plan was discussed with patient and she understood and agreed with plan of care. Critical Care Time: No Critical care attestation.: If time is entered above; I have spent that time in minutes in the direct care of this critically ill patient, excluding procedure time. ED Disposition Clinical Impression: Vaginal discharge Disposition: HOME / SELF CARE / HOMELESS Is pt being admited?: No Does the pt Need Aspirin: No Condition: Stable Instructions: Bacterial Vaginosis, [id number] Additional Instructions: Take medications as prescribed. Do not drink alcohol while taking this medication. If no improvement or worsening symptoms, follow up with pcp, leather piece inspector or here for further evaluation. Prescriptions: metroNIDAZOLE [Flagyl] 500 mg PO Q12HR 7 Days #14 tab Referrals: [facility] [Referring] - 3-5 Days Time of Disposition: 17:17
[2021-06-25 17:26] VITALS: BP 107/74
== END 2021-06-25 17:33 | disposition home or self-care (01) ==
LOC: ED 15:53
DX: N89.8 Other specified noninflammatory disorders of vagina (principal)
CPT/HCPCS: 99282